=== PATIENT | female | born 1955 | race African-American/Black ===

== ENCOUNTER 2018-08-24 07:24 | Inpatient (IN) | payer OTHER ==
[2018-08-18 14:06] VITALS: BMI 40.8
[2018-08-24] MEDS ORDERED: BUPIVACAINE LIPOSOME/PF (EXPAREL) 266 MG/20 ML VIAL ONE (09:47)
[2018-08-24] MEDS ORDERED: MIDAZOLAM HCL 2 MG/2 ML SINGLE DOSE VIAL ONE ×3 (09:47→11:17)
[2018-08-24] MEDS ORDERED: SODIUM CHLORIDE 0.9% P/F 10 ML VIAL IJ ONE (09:47)
[2018-08-24] MEDS ORDERED: VANCOMYCIN 1,000 MG in DEXTROSE 5%-WATER - 250 ML IVPB ONE (10:00)
[2018-08-24] MEDS ORDERED: TRANEXAMIC ACID 1000 MG/10 ML VIAL IVPUSH ONE (10:00)
[2018-08-24] MEDS ORDERED: CEFAZOLIN 2 GM in DEXTROSE 5%-WATER - 50 ML IVPB ONE (10:00)
[2018-08-24] MEDS ORDERED: VANCOMYCIN 1,000 MG VIAL (RESTRICTED TO ID ONLY) ONE (11:30)
[2018-08-24] MEDS ORDERED: TRANEXAMIC ACID 1000 MG/10 ML VIAL ONE (11:30)
[2018-08-24] MEDS ORDERED: ceFAZolin SODIUM 1 GM VIAL ONE ×2 (11:30→12:29)
[2018-08-24] MEDS ORDERED: DEXAMETHASONE SOD PHOSPHATE 4 MG/1 ML VIAL ONE (11:30)
[2018-08-24] MEDS ORDERED: ONDANSETRON 4 MG/2 ML VIAL ONE (11:30)
[2018-08-24] MEDS ORDERED: BENZOIN TINCTURE SWABSTICK TP ONE (12:53)
[2018-08-24] MEDS ORDERED: CYCLOBENZAPRINE HCL 10 MG TABLET (FP) PO PRN (12:57)
[2018-08-24] MEDS ORDERED: ALBUTEROL SO4 8 GM HFA INHALER IH PRN (12:57)
[2018-08-24] MEDS ORDERED: FLUTICASONE PROP 0.05% 16 GM NASAL SPRAY NS PRN (12:57)
[2018-08-24] MEDS ORDERED: MAG HYDROX/AL HYDROX/SIMETH 30 ML UNIT-DOSE CUP PO PRN (12:58)
[2018-08-24] MEDS ORDERED: ONDANSETRON 4 MG/2 ML VIAL IVPUSH PRN ×2 (12:58→13:44)
[2018-08-24] MEDS ORDERED: MAGNESIUM HYDROX 2400MG/30ML ORAL SUSPENSION 30 ML CUP PO PRN (12:58)
[2018-08-24] MEDS ORDERED: LACTATED RINGERS SOLUTION 1,000 ML IV SCH (13:00)
--- NOTE | 2018-08-24 13:01 | PN ---
Progress Note (short form) - Note Progress Note: 63F s/p RIGHT total knee replacement POD #0. -Pain control. -DVT PPx: -Chemical: ASA 81mg PO BID x 6 weeks post-op. -Mechanical: ROBBY's, SCD's. -Incentive spirometry q15 min. -PT/OT/Rehab, OOB. -WBAT RLE. -Post-op Ancef x 2 doses. -f/u post-op TOV: 8 hours max. -f/u AM labs. -f/u drain output. -Diet as tolerated. -Care per medical hospitalist team. -Discharge planning: f/u [facility] [place] Office 09/01/2018; call for appointment . -Will follow. Drew James MD (Orthopaedic Surgery).
--- NOTE | 2018-08-24 13:02 | OP ---
Operative Note - Note: Operative Date: 08/24/18 Pre-Operative Diagnosis: Right knee DJD Operation: Right total knee replacement Implants: Soo Triathlon. Femur - 3. Tibia - 4. Poly - 9mm, PS. Patella - 27mm, symmetric Post-Operative Diagnosis: Same as Pre-op Surgeon: Drew James Manager Marketing Communications: Mark James Anesthesiologist/ANIMAL HUSBANDRY MANAGER: Sukhi Mchugh Anesthesia: Spinal Specimens Removed: Bone, soft tissue Estimated Blood Loss (mls): 0 Drains & Tubes with Location: 1 x deep HemoVac Fluid Volume Replaced (mls): 750 (Crystalloid) Operative Report Dictated: Yes
[2018-08-24] MEDS ORDERED: PROMETHAZINE HCL 25 MG/1 ML VIAL IVPUSH PRN (13:44)
--- NOTE | 2018-08-24 14:25 | OP ---
DATE OF OPERATION: 08/24/2018 SURGEON: Drew James MD ROAD TRAFFIC CONTROLLER: Mark James MD; TOYIN Edmondson PREOPERATIVE DIAGNOSIS: Tricompartment osteoarthritis, right knee. POSTOPERATIVE DIAGNOSIS: Tricompartment osteoarthritis, right knee. OPERATION PERFORMED: Right posterior stabilized total knee arthroplasty (Soo). ANESTHESIA: Spinal with conscious sedation and peripheral nerve block. ANTIBIOTICS: The patient was given 2 g Kefzol and1 g vancomycin preoperative, 1 g Kefzol given at the time of release of the tourniquet. OPERATION IN DETAIL: After patient correctly identified, brought in to operating room, right lower extremity was prepped and draped in the routine manner with Betadine scrub solution, wiped off with alcohol, DuraPrep applied. Timeout was called. Imaging was available for intraoperative evaluation. A free drape utilized. Midline incision utilized from 3 cm above the superior pole of the patella to just distal to the tibial tubercle midline, exposing the underlying quadriceps mechanism and patella and patellar ligament. Incision along the tibia was made medial to the tibial tubercle and extended up proximally, curved backwards towards the posterior aspect of the femoral condyle. The epimysium of vastus medialis was lifted and the muscle dissected off intermuscular septum right down to the linea aspera region. A blunt Hohmann placed over the femur to hold the muscle and patella out of harm's way. The capsization of the patella was straightforward and uncomplicated. The patellar cut was made with an oscillating saw from patellar button to quadriceps tendon. The actual incision was made to leave behind about a 1-cm thickness of the patella. This jig utilized was for a 27-mm patellar button. The tibia was subluxed forwards after releasing all soft tissues around the proximal tibia, and this then resulted in an easy access to the tibial surface, the extramedullary jig applied, and the tibia was cut to neutral, that is, 90 degrees to the shaft of the tibia. The measurement of the tibia was sized with a size 4, and the tibial surfaces were prepared, this using the starter drill as well as the fins of the broach. Once this had been performed, the femur was cut to 3 degrees external rotation. The standard cut, that is, 8-mm distal femur, was utilized, and a size 3 femur was utilized. The flexion/extension gaps were even. The alignment of the limb was brought back to neutral, that is, along the mechanical axis. All the jig cuts were made with the relevant jig and oscillating saw. The cementing of all components was in 1 stage after all bone was thoroughly lavaged with pulse lavage and the interstices free of any collagen, lipid, as well as water content. Cementing was 3rd-generation cement technique. The tibia was inserted before the femur, which was itself inserted before the patella. All extraneous cement was removed. Tracking after curing of the cement was noted to be perfectly well aligned. After thorough lavage and removal of all extraneous cement, the closure was as follows: Fascia of quadriceps tendon and muscle: 1 Vicryl; subcutaneous: 1 and 2-0 Vicryl; skin: 3-0 Monocryl with Steri-Strips. Drainage: A 1/8-inch Hemovac to the sub-vastus bed for the sub-vastus approach appropriately. MD XENA [id number]
[2018-08-24] MEDS: ACETAMINOPHEN 325 MG TABLET (FP) PO SCH ×2 (14:40→20:16)
[2018-08-24] MEDS: oxyCODONE HCL 10 MG SUSTAINED ACTING TABLET PO SCH ×2 (14:40→23:24)
[2018-08-24] MEDS ORDERED: oxyCODONE HCL 10 MG SUSTAINED ACTING TABLET ONE (14:41)
[2018-08-24] MEDS: oxyCODONE HCL 5 MG TABLET PO PRN ×2 (15:50→23:24)
--- NOTE | 2018-08-24 16:09 | PN ---
Progress Note, Physician Chief Complaint: right knee pain History of Present Illness: 63 yo lady came in for right knee replacement with Dr James. denies chest pain,palpitations, nausea, vomiting, diarrhea - Current Medication List Current Medications: Active Medications Acetaminophen (Tylenol -) 650 mg PO Q6H [facility] Stop: 08/27/18 14:59 Last Admin: 08/24/18 14:40 Dose: 650 mg Al Hydroxide/Mg Hydroxide (Mylanta Oral Suspension -) 30 ml PO Q4H PRN PRN Reason: DYSPEPSIA Albuterol Sulfate (Ventolin Hfa Inhaler -) 1 - 2 puff IH QID PRN PRN Reason: ASTHMA Amlodipine Besylate (Norvasc -) 5 mg PO DAILY [facility] Aspirin (Asa -) 81 mg PO BID [facility] Cyclobenzaprine HCl (Flexeril -) 10 mg PO HS PRN PRN Reason: PAIN Fentanyl (Sublimaze Injection -) 50 mcg IVPUSH [id number] PRN PRN Reason: PAIN-PACU ORDER X 4 DOSES ONLY Fluticasone Propionate (Flonase -) 1 - 2 spray NS DAILY PRN PRN Reason: ALLERGIES Cefazolin Sodium/Dextrose (Ancef 2 Gm Premixed Ivpb -) 2 gm in 50 mls @ 100 mls /hr IVPB Q8H [facility] Stop: 08/25/18 04:29 Lactated Ringer's (Lactated Ringers Solution) 1,000 mls @ 125 mls/hr IV ASDIR [facility] Stop: 08/25/18 06:00 Last Admin: 08/24/18 14:54 Dose: 0 mls Magnesium Hydroxide (Milk Of Magnesia -) 30 ml PO PRN PRN PRN Reason: CONSTIPATION Nortriptyline HCl (Pamelor -) 10 mg PO HS [facility] Ondansetron HCl (Zofran Injection) 4 mg IVPUSH Q6H PRN PRN Reason: NAUSEA Ondansetron HCl (Zofran Injection) 4 mg IVPUSH Q6H PRN PRN Reason: NAUSEA AND/OR VOMITING Oxycodone HCl (Roxicodone -) 5 mg PO Q3H PRN PRN Reason: PAIN LEVEL 1-5 Oxycodone HCl (Roxicodone -) 10 mg PO Q3H PRN PRN Reason: PAIN LEVEL 6-10 Last Admin: 08/24/18 15:50 Dose: 10 mg Oxycodone HCl (Oxycontin -) 10 mg PO BID [facility] Stop: 08/27/18 14:44 Last Admin: 08/24/18 14:40 Dose: 10 mg Pantoprazole Sodium (Protonix -) 40 mg PO DAILY [facility] Promethazine HCl (Phenergan Injection -) 12.5 mg IVPUSH Q6H PRN PRN Reason: NAUSEA-FOR RESCUE AFTER 15 MIN Senna/Docusate Sodium (Pericolace -) 2 tablet PO BID [facility] Valsartan (Diovan -) 160 mg PO DAILY [facility] - Objective Vital Signs: Vital Signs Temperature 97.9 F 08/24/18 15:15 Pulse Rate 71 08/24/18 15:15 Respiratory Rate 18 08/24/18 15:15 Blood Pressure 129/63 08/24/18 15:15 O2 Sat by Pulse Oximetry (%) 99 08/24/18 15:59 Constitutional: Yes: Well Nourished, No Distress, Calm Eyes: Yes: WNL HENT: Yes: WNL Neck: Yes: WNL Cardiovascular: Yes: WNL, Regular Rate and Rhythm Respiratory: Yes: WNL Gastrointestinal: Yes: Abdomen, Obese ...Rectal Exam: Yes: Deferred Genitourinary: Yes: WNL Breast(s): Yes: WNL Musculoskeletal: Yes: Joint Stiffness Extremities: Yes: WNL Integumentary: Yes: WNL Wound/Incision: Yes: Clean/Dry, Well Approximated Psychiatric: Yes: WNL Assessment/Plan 63 yo lady with Right knee DJD. S/P Right total knee replacement cont pain management. incentive spirometry. -GI, DVT prophylaxis. -morbid obesity: weight loss and healthier lifestyle advised. -HTN: on amlodipine, diovan -cont zofran for nausea. -cont laxatives for opioid induced constipation. -chronic moderate perisitent asthma: cont bronchodilators. -ID: covered with Ancef. -oral diet -PT/OT/OOB as tolerated
[2018-08-24] MEDS: CEFAZOLIN 2 GM/D5W 2 GM/50 ML ML IVPB SCH (20:16)
[2018-08-24] MEDS: ASPIRIN 81 MG CHEWABLE TABLETS PO SCH (21:37)
[2018-08-24] MEDS: SENNOSIDES/DOCUSATE COMBO (SENNA PLUS) TABLET (UD) PO SCH (21:37)
[2018-08-24] MEDS: NORTRIPTYLINE HCL 10 MG CAPSULE PO SCH (21:43)
[2018-08-25] MEDS: oxyCODONE HCL 5 MG TABLET PO PRN ×4 (02:10→21:50)
[2018-08-25] MEDS: ACETAMINOPHEN 325 MG TABLET (FP) PO SCH ×4 (02:11→21:48)
[2018-08-25] MEDS: CEFAZOLIN 2 GM/D5W 2 GM/50 ML ML IVPB SCH (05:00)
--- NOTE | 2018-08-25 07:47 | PN ---
Progress Note (short form) - Note Progress Note: surgery POD #1 right TKA patient seen and examined at the bedside. She had some pain overnight which has resolved this morning and is controlled with the oral pain meds. She has not been OOB yet with PT but has been up to the chair. She is voiding and tolerating her diet. She denies any CP, SOB, N/V, Fever or chills. Vital Signs Temp 99.3 F 08/25/18 06:00 Pulse 85 08/25/18 06:00 Resp 18 08/25/18 06:00 BP 124/86 08/25/18 06:00 Pulse Ox 96 08/25/18 06:00 Intake & Output 08/24/18 08/24/18 08/25/18 11:59 23:59 11:59 Intake Total 1100 550 Output Total 830 10 Balance 1100 -280 -10 Weight 223 lb Intake: IV 1100 100 Oral 450 Output: Drainage 30 10 Right Knee 30 10 Urine 800 Void 800 Other: Voiding Method Bedpan # Unmeasured Voids Void 1 Bowel Movement No Height 5 ft 2 in Body Mass Index (BMI) 40.8 Weight Measurement Method Standing Scale CBC, BMP 08/25/18 07:17 08/25/18 07:17 PE: A&Ox3, NAD Unlabored resp on RA Right LE dressing c/d/i with hemavac drain secured in good position. Unable to participate with ROM exam 2/2 pain but PROM 0-20 degrees. B/L LE compartments soft, supple and non-tender with +2DP pulses. 5/5 dorsi/ plantar flexion. Problem List - Problems (1) Status post total right knee replacement Assessment/Plan: POD #1 doing well 63F s/p RIGHT total knee replacement POD #0. -Pain control. -DVT PPx: -Chemical: ASA 81mg PO BID x 6 weeks post-op. -Mechanical: ROBBY's, SCD's. -Incentive spirometry q15 min. -PT/OT/Rehab, OOB. -WBAT RLE. -Post-op Ancef x 2 doses. -f/u AM labs. -f/u drain output. -Diet as tolerated. -Care per Dr Wing -Discharge planning for home tomorrow: f/u [facility] [place] Office 09/01/2018; call for appointment . Code(s): Z96.651 - PRESENCE OF RIGHT ARTIFICIAL KNEE JOINT
[2018-08-25 08:14] LABS: HEMATOCRIT 37.5 % (32.4-45.2); HEMOGLOBIN 12.4 GM/dl (10.7-15.3); MCH 28.1 pg (25.7-33.7); MEAN PLT VOLUME 8.6 fl (7.5-11.1); PLATELET COUNT 336 K/MM3 (134-434); RBC 4.42 M/mm3 (3.60-5.2); RDW 14.3 % (11.6-15.6); WHITE BLOOD COUNT 13.6 K/mm3 (4.0-10.8)
[2018-08-25 08:17] LABS: CALCIUM 8.6 mg/dl (8.5-10); POTASSIUM 3.9 mmol/L (3.5-5.1)
--- NOTE | 2018-08-25 08:24 | PN ---
Progress Note, Physician Chief Complaint: right knee pain - Current Medication List Current Medications: Active Medications Acetaminophen (Tylenol -) 650 mg PO Q6H [facility] Stop: 08/27/18 14:59 Last Admin: 08/25/18 02:11 Dose: 650 mg Al Hydroxide/Mg Hydroxide (Mylanta Oral Suspension -) 30 ml PO Q4H PRN PRN Reason: DYSPEPSIA Albuterol Sulfate (Ventolin Hfa Inhaler -) 1 - 2 puff IH QID PRN PRN Reason: ASTHMA Amlodipine Besylate (Norvasc -) 5 mg PO DAILY [facility] Aspirin (Asa -) 81 mg PO BID [facility] Last Admin: 08/24/18 21:37 Dose: 81 mg Cyclobenzaprine HCl (Flexeril -) 10 mg PO HS PRN PRN Reason: PAIN Last Admin: 08/24/18 21:37 Dose: 10 mg Fluticasone Propionate (Flonase -) 1 - 2 spray NS DAILY PRN PRN Reason: ALLERGIES Magnesium Hydroxide (Milk Of Magnesia -) 30 ml PO PRN PRN PRN Reason: CONSTIPATION Nortriptyline HCl (Pamelor -) 10 mg PO HS [facility] Last Admin: 08/24/18 21:43 Dose: 10 mg Ondansetron HCl (Zofran Injection) 4 mg IVPUSH Q6H PRN PRN Reason: NAUSEA Oxycodone HCl (Roxicodone -) 5 mg PO Q3H PRN PRN Reason: PAIN LEVEL 1-5 Oxycodone HCl (Roxicodone -) 10 mg PO Q3H PRN PRN Reason: PAIN LEVEL 6-10 Last Admin: 08/25/18 02:10 Dose: 10 mg Oxycodone HCl (Oxycontin -) 10 mg PO BID [facility] Stop: 08/27/18 14:44 Last Admin: 08/24/18 23:24 Dose: 10 mg Pantoprazole Sodium (Protonix -) 40 mg PO DAILY [facility] Senna/Docusate Sodium (Pericolace -) 2 tablet PO BID [facility] Last Admin: 08/24/18 21:37 Dose: 2 tablet Valsartan (Diovan -) 160 mg PO DAILY [facility] - Objective Vital Signs: Vital Signs Temperature 99.3 F 08/25/18 06:00 Pulse Rate 85 08/25/18 06:00 Respiratory Rate 18 08/25/18 06:00 Blood Pressure 124/86 08/25/18 06:00 O2 Sat by Pulse Oximetry (%) 96 08/25/18 06:00 Constitutional: Yes: Well Nourished, No Distress Eyes: Yes: WNL HENT: Yes: WNL Neck: Yes: WNL Cardiovascular: Yes: WNL Respiratory: Yes: WNL Gastrointestinal: Yes: WNL Genitourinary: Yes: WNL Musculoskeletal: Yes: Joint Stiffness Extremities: Yes: WNL Edema: No Integumentary: Yes: WNL Wound/Incision: Yes: Clean/Dry, Well Approximated Neurological: Yes: WNL Assessment/Plan 63 yo lady with Right knee DJD. S/P Right total knee replacement POD #1 cont pain management. incentive spirometry. -GI, DVT prophylaxis. -morbid obesity: weight loss and healthier lifestyle advised. -HTN: on amlodipine, diovan -cont zofran for nausea. -cont laxatives for opioid induced constipation. -chronic moderate perisitent asthma: cont bronchodilators. -ID: covered with Ancef. -oral diet -PT/OT/OOB as tolerated -hopefully will DC home tomorrow -labs pending. meds reviewed
[2018-08-25] MEDS: ASPIRIN 81 MG CHEWABLE TABLETS PO SCH ×2 (09:32→21:49)
[2018-08-25] MEDS: VALSARTAN 160 MG TABLET (UD) PO SCH (09:32)
[2018-08-25] MEDS: amLODIPine BESYLATE 5 MG TABLET (FP) PO SCH (09:32)
[2018-08-25] MEDS: PANTOPRAZOLE 40 MG TABLET (FP) PO SCH (09:33)
[2018-08-25] MEDS: SENNOSIDES/DOCUSATE COMBO (SENNA PLUS) TABLET (UD) PO SCH ×2 (09:33→21:50)
[2018-08-25] MEDS: oxyCODONE HCL 10 MG SUSTAINED ACTING TABLET PO SCH ×2 (09:34→21:49)
[2018-08-25] MEDS ORDERED: PATIENT'S OWN MEDICATION (NON-FORMULARY) (Amlodipine Besylate/Valsartan [Amlodipine-Valsar PO SCH (10:00)
--- NOTE | 2018-08-25 15:00 | PN ---
Progress Note (short form) - Note Progress Note: PT POD1 s/p right knee arhtroplasty with spinal and block. Pt had some c/o pain overnight, that PO pain meds did not fully address; however, now she is ambulating with PT and says her pain is now under control. Will not add any additional meds at this time. No anesthetic issues/complications noted.
[2018-08-25] MEDS ORDERED: PT OWN MED DRAWER 7, Y5N ONE (21:19)
[2018-08-25] MEDS: NORTRIPTYLINE HCL 10 MG CAPSULE PO SCH (21:50)
[2018-08-26] MEDS: ACETAMINOPHEN 325 MG TABLET (FP) PO SCH ×4 (04:35→21:39)
[2018-08-26 08:18] LABS: HEMATOCRIT 34.9 % (32.4-45.2); HEMOGLOBIN 11.5 GM/dl (10.7-15.3); MCHC 32.8 g/dl (32.0-36.0); MEAN CELL VOLUME 85.3 fl (80-96); MEAN PLT VOLUME 8.2 fl (7.5-11.1); PLATELET COUNT 287 K/MM3 (134-434); RBC 4.09 M/mm3 (3.60-5.2); RDW 14.8 % (11.6-15.6); WHITE BLOOD COUNT 13.4 K/mm3 (4.0-10.8)
--- NOTE | 2018-08-26 08:58 | PN ---
Progress Note, Physician Chief Complaint: right knee pain History of Present Illness: 63 yo lady came in for right knee replacement with Dr James. denies chest pain,palpitations, nausea, vomiting, diarrhea - Current Medication List Current Medications: Active Medications Acetaminophen (Tylenol -) 650 mg PO Q6H [facility] Stop: 08/27/18 14:59 Last Admin: 08/26/18 04:35 Dose: Not Given Al Hydroxide/Mg Hydroxide (Mylanta Oral Suspension -) 30 ml PO Q4H PRN PRN Reason: DYSPEPSIA Albuterol Sulfate (Ventolin Hfa Inhaler -) 1 - 2 puff IH QID PRN PRN Reason: ASTHMA Amlodipine Besylate (Norvasc -) 5 mg PO DAILY [facility] Last Admin: 08/25/18 09:32 Dose: 5 mg Aspirin (Asa -) 81 mg PO BID [facility] Last Admin: 08/25/18 21:49 Dose: 81 mg Cyclobenzaprine HCl (Flexeril -) 10 mg PO HS PRN PRN Reason: PAIN Last Admin: 08/24/18 21:37 Dose: 10 mg Fluticasone Propionate (Flonase -) 1 - 2 spray NS DAILY PRN PRN Reason: ALLERGIES Magnesium Hydroxide (Milk Of Magnesia -) 30 ml PO PRN PRN PRN Reason: CONSTIPATION Last Admin: 08/25/18 09:32 Dose: 30 ml Nortriptyline HCl (Pamelor -) 10 mg PO HS [facility] Last Admin: 08/25/18 21:50 Dose: 10 mg Ondansetron HCl (Zofran Injection) 4 mg IVPUSH Q6H PRN PRN Reason: NAUSEA Oxycodone HCl (Roxicodone -) 5 mg PO Q3H PRN PRN Reason: PAIN LEVEL 1-5 Last Admin: 08/25/18 21:50 Dose: 5 mg Oxycodone HCl (Roxicodone -) 10 mg PO Q3H PRN PRN Reason: PAIN LEVEL 6-10 Last Admin: 08/25/18 18:18 Dose: 10 mg Oxycodone HCl (Oxycontin -) 10 mg PO BID [facility] Stop: 08/27/18 14:44 Last Admin: 08/25/18 21:49 Dose: 10 mg Pantoprazole Sodium (Protonix -) 40 mg PO DAILY [facility] Last Admin: 08/25/18 09:33 Dose: 40 mg Senna/Docusate Sodium (Pericolace -) 2 tablet PO BID [facility] Last Admin: 08/25/18 21:50 Dose: 2 tablet Valsartan (Diovan -) 160 mg PO DAILY [facility] Last Admin: 08/25/18 09:32 Dose: 160 mg - Objective Vital Signs: Vital Signs Temperature 98.7 F 08/26/18 06:29 Pulse Rate 99 H 08/26/18 06:29 Respiratory Rate 18 08/26/18 06:29 Blood Pressure 131/62 08/26/18 06:29 O2 Sat by Pulse Oximetry (%) 94 L 08/26/18 06:29 Constitutional: Yes: Well Nourished, No Distress Eyes: Yes: WNL HENT: Yes: WNL Neck: Yes: WNL Cardiovascular: Yes: WNL Respiratory: Yes: WNL Gastrointestinal: Yes: WNL Genitourinary: Yes: WNL Musculoskeletal: Yes: WNL, Joint Stiffness Extremities: Yes: WNL Psychiatric: Yes: WNL Labs: CBC, BMP 08/26/18 07:13 08/25/18 07:17 Assessment/Plan 63 yo lady with Right knee DJD. S/P Right total knee replacement POD #2 cont pain management. incentive spirometry. -GI, DVT prophylaxis. -morbid obesity: weight loss and healthier lifestyle advised. -HTN: on amlodipine, diovan -cont zofran for nausea. -cont laxatives for opioid induced constipation. -chronic moderate perisitent asthma: cont bronchodilators. -ID: covered with Ancef. -oral diet -PT/OT/OOB as tolerated -DC planning
[2018-08-26] MEDS: amLODIPine BESYLATE 5 MG TABLET (FP) PO SCH (09:09)
[2018-08-26] MEDS: VALSARTAN 160 MG TABLET (UD) PO SCH (09:09)
[2018-08-26] MEDS: ASPIRIN 81 MG CHEWABLE TABLETS PO SCH ×2 (09:10→21:40)
[2018-08-26] MEDS: PANTOPRAZOLE 40 MG TABLET (FP) PO SCH (09:10)
[2018-08-26] MEDS: SENNOSIDES/DOCUSATE COMBO (SENNA PLUS) TABLET (UD) PO SCH ×2 (09:10→21:40)
[2018-08-26] MEDS: oxyCODONE HCL 10 MG SUSTAINED ACTING TABLET PO SCH ×2 (09:12→21:40)
--- NOTE | 2018-08-26 10:04 | DS ---
Physical Examination Vital Signs: Vital Signs Temperature 98.8 F 08/26/18 09:07 Pulse Rate 100 H 08/26/18 09:07 Respiratory Rate 18 08/26/18 09:07 Blood Pressure 130/55 L 08/26/18 09:07 O2 Sat by Pulse Oximetry (%) 95 08/26/18 07:07 Constitutional: Yes: Well Nourished, No Distress Eyes: Yes: WNL HENT: Yes: WNL Neck: Yes: WNL Cardiovascular: Yes: WNL Respiratory: Yes: WNL Gastrointestinal: Yes: WNL Renal/: Yes: WNL Musculoskeletal: Yes: WNL, Joint Stiffness Extremities: Yes: WNL Edema: No Integumentary: Yes: WNL Wound/Incision: Yes: Clean/Dry, Well Approximated Neurological: Yes: WNL ...Motor Strength: WNL Psychiatric: Yes: WNL Labs: CBC, BMP 08/26/18 07:13 08/25/18 07:17 Discharge Summary Reason For Visit: UNILATERAL PRIMARY OSTEOARTHRITIS Current Active Problems Status post total right knee replacement (Acute) - Instructions Diet, Activity, Other Instructions: Dr. James Discharge Instructions for Knee Replacement Post Operative Instructions Physical activity Physical Therapist will come to your home for the first 5 days. You will be set up with outpatient PT at your first post-operative visit. Use assistive devices for ambulation at all times. Weight bearing as tolerated on your surgical side. Do not put pillow under knee. May put pillow under heel. Wound care Leave your surgical dressing in place. Do not change the dressing until seen by your surgeon in the office. No baths or showers. Do not submerge your incision. Do not apply any ointments or lotions to your incision. Please call the office if your dressing is soiled/dirty or is falling off. Apply Graduated Compression Stockings (TEDS) to both lower extremities - remove daily for hygiene ONLY. Diet There are no dietary restrictions. Eat healthy, high-fiber foods. Drink 6 to 8 glasses of liquid each day. This will assist in keeping your bowels are regular. Pain management Any pain prescription medication ordered should be taken as prescribed for moderate to severe pain. Do not take additional Tylenol while taking Percocet. Take Aspirin 81 mg two times a day for a total of 6 weeks to prevent blood clots. Call Dr. James for any of the following: Severe pain not relieved by medication Fever of 101 or higher Excessive bleeding or drainage on dressing Inability to urinate If you experience chest pain or shortness of breath, please seek emergency care immediately. f/u [facility] [place] [facility] 09/01/2018; call for appointment ( [phone]. - Home Medications Comprehensive Discharge Medication List: Ambulatory Orders Albuterol Sulfate Inhaler - [Ventolin Hfa Inhaler -] 1 - 2 inh PO QID PRN Amlodipine Besylate/Valsartan [Amlodipine-Valsartan 5-160 mg] 1 tab PO DAILY 08/31 Aspirin [Aspirin EC] 81 mg PO DAILY 08/18/18 Cyclobenzaprine HCl [Flexeril 10 mg] 10 mg PO HS PRN 08/18/18 Fluticasone Prop 0.05% Nasal [Flonase -] 1 - 2 spray NS DAILY PRN 08/18/18 Nortriptyline HCl [Pamelor -] 10 mg PO HS 08/18/18 Gabapentin 300 mg PO ASDIR PRN 08/24/18
--- NOTE | 2018-08-26 11:02 | PN ---
Progress Note (short form) - Note Progress Note: surgery POD #2 right TKA patient seen and examined at the bedside. Pain is controlled with the oral pain meds. She has been OOB yet with PT and up to the chair. She is voiding and tolerating her diet. She denies any CP, SOB, N/V, Fever or chills. Vital Signs Temp 98.8 F 08/26/ 09:07 Pulse 100 H 08/26/18 09:07 Resp 18 08/26/18 09:07 BP 130/55 L 08/26/18 09:07 Pulse Ox 95 08/26/18 07:07 Intake & Output 08/25/08/25/18 08/26/18 11:59 23:59 11:59 Intake Total 1140 640 Output Total 10 1020 30 Balance -10 120 610 Intake: Oral 1140 640 Output: Drainage 10 120 30 Right Knee 10 120 30 Urine 900 Void 900 Other: Voiding Method Toilet Toilet Toilet # Unmeasured Voids Void 1 1 1 CBC, BMP 08/26/ 07:13 08/25/18 07:17 PE: A&Ox3, NAD Unlabored resp on RA Right LE dressing c/d/i, hemavac drain removed with tip fully intact, no active bleeding from drain site. small area of erythema over medial boarder just superior to joint line. I have outlined this. ROM from 0-90 degrees with AAROM. B/L LE compartments soft, supple and non-tender with +2DP pulses. 5/5 dorsi/ plantar flexion. Problem List - Problems (1) Status post total right knee replacement Assessment/Plan: POD #2 doing well with mild erythema over medial and superior boarder of knee- outlined and will watch closely. Patient afebrile and no significant white count. 63F s/p RIGHT total knee replacement POD #2. -Trend labs, if bump in WBCs or patient develops a fever-would pursue full work up (via medicine.) -Pain control. -DVT PPx: -Chemical: ASA 81mg PO BID x 6 weeks post-op. -Mechanical: ROBBY's, SCD's. - Encourage Incentive spirometry q15 min. -PT/OT/Rehab, OOB. -WBAT RLE. -Post-op Ancef x 2 doses. -f/u AM labs. -Diet as tolerated. -Care per Dr Wing -Discharge planning for home tomorrow: f/u [facility] [place] Office 09/01/2018; call for appointment . Evaluation and plan discussed with Dr James. Code(s): Z96.651 - PRESENCE OF RIGHT ARTIFICIAL KNEE JOINT
[2018-08-26] MEDS: oxyCODONE HCL 5 MG TABLET PO PRN (12:58)
--- NOTE | 2018-08-26 14:26 | PATH ---
Surgical Pathology Report Patient Name: JOSÉ MANUEL BURGOS Med. Rec. #: [id number] /Age/Gender: 1955 (Age: 63) / F Account: [id number] Location: ON LICENSE OF [facility] MED-SURG Taken: 08/24/2018 Received: 08/24/2018 Reported: 08/26/2018 Physicians: Drew James M.D. Specimen(s) Received RIGHT KNEE BONES Clinical History Right knee osteoarthritis Final Diagnosis BONE AND SOFT TISSUE, RIGHT KNEE, REPLACEMENT: DEGENERATIVE JOINT DISEASE. Electronically Signed Fred Arzola M.D. Gross Description Received in formalin labeled "bones right knee," is a 12.0 x 10.0 x 1.7 cm aggregate of multiple portions of bone and soft tissue. The tibial plateau measures 8.0 x 5.0 x 1.5 cm. There are multiple areas of eburnation present, measuring up to 3.8 cm in greatest dimension. The remaining articular surfaces are lamas-yellow and focally granular. The underlying trabecular bone is yellow and hard. Desizing Machine Operator sections are submitted in one cassette, following decalcification. 08/25/[address] [facility]2018
[2018-08-26] MEDS ORDERED: PT OWN MED DRAWER 7, Y5N ONE (21:38)
[2018-08-26] MEDS: NORTRIPTYLINE HCL 10 MG CAPSULE PO SCH (21:40)
[2018-08-27] MEDS: ACETAMINOPHEN 325 MG TABLET (FP) PO SCH ×3 (03:00→09:59)
[2018-08-27 06:13] VITALS: BP 136/75; PULSE 107; TEMP 99
[2018-08-27] MEDS: oxyCODONE HCL 5 MG TABLET PO PRN (06:24)
[2018-08-27] MEDS: ASPIRIN 81 MG CHEWABLE TABLETS PO SCH (09:48)
[2018-08-27] MEDS: SENNOSIDES/DOCUSATE COMBO (SENNA PLUS) TABLET (UD) PO SCH (09:48)
[2018-08-27] MEDS: amLODIPine BESYLATE 5 MG TABLET (FP) PO SCH (09:48)
[2018-08-27] MEDS: PANTOPRAZOLE 40 MG TABLET (FP) PO SCH (09:58)
[2018-08-27] MEDS: VALSARTAN 160 MG TABLET (UD) PO SCH (09:58)
[2018-08-27] MEDS: oxyCODONE HCL 10 MG SUSTAINED ACTING TABLET PO SCH (09:58)
--- NOTE | 2018-08-27 16:10 | DS ---
Physical Examination Vital Signs: Vital Signs Temperature 99.0 F 08/27/18 06:11 Pulse Rate 107 H 08/27/18 06:11 Respiratory Rate 18 08/27/18 06:11 Blood Pressure 136/75 08/27/18 06:11 O2 Sat by Pulse Oximetry (%) 98 08/27/18 06:11 Constitutional: Yes: Well Nourished, No Distress, Calm Eyes: Yes: WNL HENT: Yes: WNL Neck: Yes: WNL Cardiovascular: Yes: WNL Respiratory: Yes: WNL Gastrointestinal: Yes: WNL Renal/: Yes: WNL Musculoskeletal: Yes: WNL, Joint Stiffness Extremities: Yes: WNL Integumentary: Yes: WNL Wound/Incision: Yes: Clean/Dry, Well Approximated Neurological: Yes: WNL ...Motor Strength: WNL Psychiatric: Yes: WNL Labs: CBC, BMP 08/26/18 07:13 08/25/18 07:17 Discharge Summary Reason For Visit: UNILATERAL PRIMARY OSTEOARTHRITIS Current Active Problems Status post total right knee replacement (Acute) Condition: Good - Instructions Diet, Activity, Other Instructions: Dr. James Discharge Instructions for Knee Replacement Post Operative Instructions Physical activity Physical Therapist will come to your home for the first 5 days. You will be set up with outpatient PT at your first post-operative visit. Use assistive devices for ambulation at all times. Weight bearing as tolerated on your surgical side. Do not put pillow under knee. May put pillow under heel. Wound care Leave your surgical dressing in place. Do not change the dressing until seen by your surgeon in the office. No baths or showers. Do not submerge your incision. Do not apply any ointments or lotions to your incision. Please call the office if your dressing is soiled/dirty or is falling off. Apply Graduated Compression Stockings (TEDS) to both lower extremities - remove daily for hygiene ONLY. Diet There are no dietary restrictions. Eat healthy, high-fiber foods. Drink 6 to 8 glasses of liquid each day. This will assist in keeping your bowels are regular. Pain management Any pain prescription medication ordered should be taken as prescribed for moderate to severe pain. Do not take additional Tylenol while taking Percocet. Take Aspirin 81 mg two times a day for a total of 6 weeks to prevent blood clots. Call Dr. James for any of the following: Severe pain not relieved by medication Fever of 101 or higher Excessive bleeding or drainage on dressing Inability to urinate If you experience chest pain or shortness of breath, please seek emergency care immediately. f/u [facility] [place] [facility] 09/01/2018; call for appointment . Disposition: HOME - Home Medications Comprehensive Discharge Medication List: Ambulatory Orders Albuterol Sulfate Inhaler - [Ventolin HFA Inhaler -] 1 - 2 inh PO QID PRN Amlodipine Besylate/Valsartan [Amlodipine-Valsartan 5-160 mg] 1 tab PO DAILY 08/31 Aspirin [Aspirin EC] 81 mg PO DAILY 08/18/18 Cyclobenzaprine HCl [Flexeril 10 mg] 10 mg PO HS PRN 08/18/18 Fluticasone Prop 0.05% Nasal [Flonase -] 1 - 2 spray NS DAILY PRN 08/18/18 Nortriptyline HCl [Pamelor -] 10 mg PO HS 08/18/18 Gabapentin 300 mg PO ASDIR PRN 08/24/18 Aspirin [ASA -] 81 mg PO BID tab.chew 08/26/18 Mag Hydrox/Al Hydrox/Simeth [Mylanta Oral Suspension -] 30 ml PO Q4H PRN cup Magnesium Hydrox 2400MG/30Ml [Milk of Magnesia -] 30 ml PO PRN PRN cup Pantoprazole Sodium [Protonix -] 40 mg PO DAILY tablet.ec 08/26/18 Sennosides/Docusate Sodium [Pericolace -] 2 tablet PO BID tablet 08/26/18 oxyCODONE SR [Oxycontin] 10 mg PO BID 3 Days #6 tab.er.12h MDD 2 tabs 08/26/18
== END 2018-08-27 17:00 | disposition home or self-care (01) | DRG 470 ==
LOC: FM/S 07:24
PROVIDERS: ADMIT Orthopaedic Surgery Orthopaedic Surgery of the Spine; ATTEND Internal Medicine
PROC: 0SRC0J9 Replacement of Right Knee Joint with Synthetic Substitute, Cemented, Open Approach (ICD-10-PCS; principal; 2018-08-24 11:34)
DX: M17.11 Unilateral primary osteoarthritis, right knee (principal); Z68.41 Body mass index [BMI] 40.0-44.9, adult; R50.82 Postprocedural fever; I10 Essential (primary) hypertension; E66.01 Morbid (severe) obesity due to excess calories; J45.40 Moderate persistent asthma, uncomplicated; K59.03 Drug induced constipation
CPT/HCPCS: 36415; 73560-TC-RT-FY; 80048; 85027; 88304-TC; 88311-TC; 94760; 97116-GP; 97163-GP